=== PATIENT | female | born 1975 | race Caucasian/White ===

== ENCOUNTER 2021-08-29 00:50 | Day surgery (SDC) | payer OTHER, SELFPAY ==
[2021-08-09 13:37] VITALS: BMI 31.8
--- NOTE | 2021-08-09 14:03 | PC.NURSE ---
Report to the Outpatient Waiting Room, entrance under the green pavilion located off [facility], at time _0830_ on date 08/16/21 _. OR Time: __1030-- You and your visitor will be asked a series of questions to screen for COVID 19 for your protection. - A mask is required within the hospital. - Only one visitor is allowed at this time. Patient visitors will be guided where to wait when not with patient. Preoperative COVID Testing Requirements: No COVID Test needed if: (proof is required; if not received patient will have Rapid Test prior to entry) - Patient has received COVID Vaccine at least 14 days prior to procedure date or - Patient has positive COVID test result within last 90 days of surgery date. COVID Test needed if above criteria is not met If not COVID vaccinated a COVID test must be conducted within 72 hours of surgery and patient is asked to isolate self from time of testing until procedure. You will go to the [facility] for your COVID testing. The [facility] Testing site is located at the corner of [address] [facility]. You will only be called if COVID results are positive and your surgeon may reschedule your elective surgery date. Patients may have clear liquids (water, carbonated beverages, clear teas, apple juice) until 3 hours prior to surgery with a maximum of 20 ounces. - No food from midnight until time of surgery - Infants may have breast milk until 4 hours before surgery, formula 6 hours prior to surgery. - Children will be allowed to drink immediately following surgery. If applicable, please bring a bottle or sippy cup to assist with drinking. Juice, water, soda, and popsicles are readily available. For infants on formula, please bring formula the day of surgery. Pacifiers are allowed. Take the following medications with a SIP of water the morning of surgery: ____LORATIDINE, BUPROPION Medications to discontinue per physician MULTIVITAMIN Date to take last dose 08/12/21 Please no make-up, nail jordanian, hairspray, perfume, deodorant, or body powder the day of surgery. No jewelry (including any body piercings) or valuables the day of surgery, leave them at home. Please take a shower or bath the night before, or the morning of, surgery with an antibacterial soap. Wear comfortable, loose fitting clothing. Children are encouraged to wear pajamas. - Jewelry must be removed prior to entering the operating room. Rings and piercings that are not removed may be cut off. - The hospital will not accept responsibility for valuables. - Please leave all valuables, including medications, at home the day of surgery. If you are going home after surgery, a licensed electric pile driver operator must drive you home. - NO public transportation without another adult. - We recommend that an adult stay with you for 24 hours following discharge. - We also recommend that you do not drive, make important decision, drink alcoholic beverages, or take any drugs that were not prescribed by your health care provider for at least 24 hours after your discharge time. For Pediatric surgeries, we recommend two adults accompany the child home (only one inside the building at this time). Follow any additional instructions given to you from your surgeon. Telephone instructions given to ____JEREMIAH and asked if any additional questions and then verbalized understanding. Patient advised to call surgeon office or pre surgery nurse liaison [phone] if any additional questions.
--- NOTE | 2021-08-22 08:20 | PC.NURSE ---
Report to the Outpatient Waiting Room, entrance under the green pavilion located off [facility], at time _0900_ on date 08/29/21_. OR Time: 1100___. - You and your visitor will be asked a series of questions to screen for COVID 19 for your protection. - A mask is required within the hospital. - Only one visitor is allowed at this time. Patient visitors will be guided where to wait when not with patient. Preoperative COVID Testing Requirements: No COVID Test needed if: (proof is required; if not received patient will have Rapid Test prior to entry) - Patient has received COVID Vaccine at least 14 days prior to procedure date or - Patient has positive COVID test result within last 90 days of surgery date. COVID Test needed if above criteria is not met If not COVID vaccinated a COVID test must be conducted within 72 hours of surgery and patient is asked to isolate self from time of testing until procedure. You will go to the [facility] for your COVID testing. The [facility] Testing site is located at the corner of [address] [facility]. You will only be called if COVID results are positive and your surgeon may reschedule your elective surgery date. Patients may have clear liquids (water, carbonated beverages, clear teas, apple juice) until 3 hours prior to surgery with a maximum of 20 ounces. - No food from midnight until time of surgery - Infants may have breast milk until 4 hours before surgery, infant formula 6 hours prior to surgery. - Children will be allowed to drink immediately following surgery. If applicable, please bring a bottle or sippy cup to assist with drinking. Juice, water, soda, and popsicles are readily available. For infants on formula, please bring formula the day of surgery. Pacifiers are allowed. Take the following medications with a SIP of water the morning of surgery: ____NONE Medications to discontinue per physician MULTIVITAMIN/SUPPLIMENTS Date to take last dose 08/26/21 Please no make-up, nail georgian, hairspray, perfume, deodorant, or body powder the day of surgery. No jewelry (including any body piercings) or valuables the day of surgery, leave them at home. Please take a shower or bath the night before, or the morning of, surgery with an antibacterial soap. Wear comfortable, loose fitting clothing. Children are encouraged to wear pajamas. - Jewelry must be removed prior to entering the operating room. Rings and piercings that are not removed may be cut off. - The hospital will not accept responsibility for valuables. - Please leave all valuables, including medications, at home the day of surgery. If you are going home after surgery, a licensed trailer truck driver must drive you home. - NO public transportation without another adult. - We recommend that an adult stay with you for 24 hours following discharge. - We also recommend that you do not drive, make important decision, drink alcoholic beverages, or take any drugs that were not prescribed by your health care provider for at least 24 hours after your discharge time. For Pediatric surgeries, we recommend two adults accompany the child home (only one inside the building at this time). Follow any additional instructions given to you from your surgeon. Telephone instructions given to PATIENT____and asked if any additional questions and then verbalized understanding. Patient advised to call surgeon office or pre surgery nurse liaison [phone] if any additional questions.
--- NOTE | 2021-08-22 08:25 | PC.NURSE ---
PT DENIES ANY CHANGE IN HEALTH OR MEDICATION. NEW INSTRUCTIONS REVIEWED. DENIES ANY QUESTIONS
--- NOTE | 2021-08-28 15:36 | PM.SD2 ---
Same Day Admit/Disch: HPI History of Present Illness Chief complaint: scalp cyst x 4 Narrative: Enma Rogers is a 46 year old female with several scalp cysts. She had a couple of scalp cysts removed about 15 years ago. These recurred and others have developed. The recurrent ones are larger now within the last year. All of them are bothersome with taking care of her hair. She is taken to surgery now for excision of 4 scalp cyst. 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 Spiritual care concerns: No Same Day Admit/Disch: Med Pre-admit Medications Home Medications Medication Instructions Recorded Confirmed Type bupropion HCl 300 mg 24 hr tablet, 300 mg PO QAM 07/12/21 08/29/21 History extended release cholecalciferol (vitamin D3) 10 10 mcg PO DAILY 07/12/21 08/29/21 History mcg (400 unit) capsule loratadine 10 mg tablet 10 mg PO DAILY 07/12/21 08/29/21 History multivitamin 1 tablet PO DAILY 07/12/21 08/29/21 History hydrocodone-acetaminophen 1 - 2 tablet PO Q6H PRN #12 tablet 08/29/21 Rx ketorolac 10 mg PO Q6H 4 Days #16 tablet 08/29/21 Rx Exam Const: General: comfortable, no acute distress, alert and awake HENMT: Head: normocephalic, atraumatic, scalp lesion ( 2 cm right parietal occipital, 1 cm upper occipital, ) and other ( left frontoparietal cyst 1.3 cm, left frontoparietal, just posterior, 0.3 ) Mouth: Yes Normal oral and palatal mucosa present Eyes: Conjunctivae: conjunctivae normal Pupils: Equal, round and reactive pupils present EOM: EOMs intact bilaterally Neck: Neck: normal visual inspection, no lymphadenopathy and nontender Resp: Effort & Inspection: normal respiratory effort Auscultation: clear to auscultation bilaterally Cardio: Rate: regular rate Rhythm: regular rhythm Heart sounds: no gallops, no murmurs and no rubs GI: Inspection: non-distended GI Palp: Yes Soft to palpation, No Tenderness to palpation present (GI), No Hepatomegaly present and No Splenomegaly present Skin: Lesions: lesion noted ( scalp cysts as noted above) Rashes: no rashes Neuro: General: no focal motor deficits and CN's II-XI intact bilaterally Cranial nerves: Yes Equal, round and reactive pupils present, Yes Bilaterally intact EOM present, Yes facial symmetry and Yes Midline tongue present Speech: normal speech Motor exam (neuro): 5/5 motor strength present throughout and Motor abnormalities not present Extrem: General: no clubbing, cyanosis or edema and edema Psych: Affect: normal affect Thought process: Normal thought process present Insight: Good insight present (Psych) DS: Summary Time Spent with Patient Time attestation: Total time spent providing and/or coordinating discharge services: DS: Admitting Diagnosis Discharge Date 08/29/2021 Admitting Diagnosis symptomatic scalp cysts x4 -plan to excise under anesthesia as an outpatient. The procedure the risks the benefits have been discussed with the patient. All questions were answered. She agrees to go ahead. Latex allergy DS: Discharge Diagnosis Discharge Diagnosis (1) Scalp cyst: Code(s): L72.9 - Follicular cyst of the skin and subcutaneous tissue, unspecified Status: Chronic Discharge Plan Discharge Patient Disposit
[2021-08-29 09:11] VITALS: BP 117/74; PULSE 65; RESP 16; TEMP 36.7; O2SAT 100
[2021-08-29] MEDS: LACTATED RINGERS 1,000 ML 30 ML IV CONT (09:40)
--- NOTE | 2021-08-29 09:47 | WPDANESEPPF ---
Anes - Initial Pre Proc Eval Procedure: Operation Date: 08/29/21 11:00 Proposed Procedures p Excision Scalp Cyst Times Four - Rey Hu MD Date/Time: 08/29/21 09:47 Surgeon: Rey Hu MD Pre Op Diagnosis: scalp cyst x 4 Patient Data Age: 46 Gender: F Height: 1.73 m Weight: 106.4 kg Last Vital Signs Temp 36.7 C 08/29/21 09:11 Pulse 65 08/29/21 09:11 Resp 16 08/29/21 09:11 BP 117/74 08/29/21 09:11 Pulse Ox 100 08/29/21 09:11 Allergies Allergy/AdvReac Type Severity Reaction Status Date / Time latex Allergy Mild SKIN Verified 08/29/21 09:17 PEELING ON BILAT HANDS/FEET Home Medications Medication Instructions Recorded Confirmed Type bupropion HCl 300 mg 24 hr tablet, 300 mg PO QAM 07/12/21 08/29/21 History extended release cholecalciferol (vitamin D3) 10 10 mcg PO DAILY 07/12/21 08/29/21 History mcg (400 unit) capsule loratadine 10 mg tablet 10 mg PO DAILY 07/12/21 08/29/21 History multivitamin 1 tablet PO DAILY 07/12/21 08/29/21 History Patient hx anesthesia problems: none Family hx anesthesia problems: none Results Review: All pre-operative results and documents have been reviewed as part of the pre-operative evaluation. 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 Informed Consent: The patient's anesthetic plan and its attendant risks and benefits were discussed with the patient/family/POA. Questions were solicited and answers provided to the satisfaction of the patient/family/POA.
--- NOTE | 2021-08-29 09:57 | WPDHPUPDATE1 ---
History and Physical Update Update Date/Time: 08/29/21 09:57 History and Physical has been reviewed, including an updated exam of the patient. There are NO changes in the patient's condition. Risks, benefits, and alternatives have been discussed and questions answered. Patient agrees to proceed with procedure.
[2021-08-29] MEDS: BUPIVACAINE/EPINEPHRINE 0.5% 10 ML VIAL 20 ML INFILTRATE (10:23)
[2021-08-29] MEDS: BACITRACIN OINTMENT 15 GM TUBE 1 APPLIC TOPICAL (11:09)
[2021-08-29 11:56] VITALS: BP 114/64; PULSE 69; RESP 12; O2SAT 97
--- NOTE | 2021-08-29 12:21 | W.PM.PROC2 ---
Procedure Note - Detailed Date of Procedure 08/29/21 Pre-op Diagnosis scalp cyst x 4 Post-op Diagnosis same Procedure Performed Excision of multiple skin cysts of the scalp Surgeon Rey Hu MD Warp Tying Machine Knotter Shama JIANG Anesthesia general (LMA, propofol) and local (0.5% Marcaine with epinephrine) Indications Patient has recurrent scalp cyst in the right parietal area as well as new scalp cysts. They are all symptomatic and she is taken to surgery now for removal. Findings Left parietal cyst-0.8 cm cyst, 2 cm excision, no margin Left frontal cyst-1.5 cm cyst, 4.5 cm excision, no margin Right parietal cysts x2 (recurrent and very close to each other; one excision of both)--1.5 cm cyst, 1.2 cm cyst, 5 cm excision, no margin Occipital cyst-0.7 cm cyst, 2.5 cm excision, no margin Description of Procedure The patient was seen in the preoperative holding area and all of the cysts were marked on the scalp. She was then taken to the operating room and induced into anesthesia per LMA. The rubber bands were used to gather her hair and exposed the previously marked cysts. She was in a supine position but with access even to the occipital cyst. All of the areas of excision were prepped with Betadine. Sterile draping was carried out as well. We started with the left parietal and left frontal cysts. These were close to 1 another. The frontal cyst was larger and the excision was a transversely oriented ellipse. The parietal cyst was more of a craniocaudad orientation. Local was infiltrated in the area of each cyst. The size of each cyst and the size of the excision is as marked above. The left parietal cyst was excised 1st. It was sent to pathology labeled appropriately. All cysts were excised with an ellipse that included the overlying skin. Each cyst was measured after excision. The resultant wound was measured after excision as well. Cautery was used for hemostasis. I then excised the left frontal cyst in transverse orientation as planned. Again cautery was used for hemostasis. Both wounds were closed with vertical mattress interrupted suture of 3-0 nylon. Both wounds came together quite well and hemostasis was good. We then turned our attention to the to right parietal cysts. These were recurrent cyst. They were literally 1 slightly more anterior to the other but very close together. The planned ellipse was oriented anterior posterior and included both cysts. Local was again infiltrated. An ellipse was created that included both cysts. Careful dissection removed the ellipse with the underlying cysts without rupturing any of the cyst. I then checked and measured each of the cysts. I measured the size of the ellipse. Findings are as listed above. Cautery was used for hemostasis and then this wound was closed in similar fashion with 3-0 nylon vertical mattress interrupted suture. We then increased the reverse Trendelenburg and exposed the occipital cyst which was more on the patient's right side. Cyst size as listed above. Local was infiltrated. An ellipse around the cyst was created and the cyst was carefully excised with the overlying skin and surrounding subcutaneous. Size of the cyst and ellipse as marked above. This wound was also closed with vertical mattress sutures of interrupted 3-0 nylon. The gathered hair was freed of the rubber bands. The scalp was washed to remove any dried of or clotted blood. All wounds were dressed with antibiotic ointment. Patient was awakened and taken to outpatient surgery in good condition. Counts were correct x2. Estimated Blood Loss -10.0 Drains No Packing No Pathology yes (Five cysts as noted above with 4 separate excisions.) Complications No immediate complications Condition stable Disposition same day
[2021-08-29 12:25] VITALS: BP 140/77; PULSE 65; RESP 16
== END 2021-08-29 12:55 | disposition home or self-care (01) ==
PROVIDERS: PCP Internal Medicine; Visit Provider Surgery
PROC: (CPT 11422; principal; 2021-08-29 11:00)
DX: L72.11 Pilar cyst (principal); F41.9 Anxiety disorder, unspecified; E66.9 Obesity, unspecified; Z68.35 Body mass index [BMI] 35.0-35.9, adult
CPT/HCPCS: 11422; 11426 ×2; 11423; 88304; 88305; A9270; J2250; J2704; J3010; J7120

== ENCOUNTER 2022-07-18 11:14 | Emergency (ER) | payer OTHER, SELFPAY ==
[2022-07-18 11:24] VITALS: BP 136/90; PULSE 74; RESP 20; TEMP 36.2; O2SAT 100
--- NOTE | 2022-07-18 14:58 | ED.BACK ---
HPI - Back Pain/Injury General Chief Complaint: Back Pain/Injury Stated Complaint: back pain Time Seen by Provider: 07/18/22 14:49 Source: RN notes reviewed History of Present Illness HPI Narrative: Patient presents emergency room from home for left lower back pain. Patient states that this morning at approximately 6:30 AM she was bending over to get something out of the freezer when she felt a sharp pain in her left lower back she states since that time she has had pain in her left lower back that is worse with movement. She denies falling or directly striking her back she denies any radiation of the pain into her legs she denies any abdominal pain fever chills numbness or tingling in extremities bowel or bladder incontinence or any other symptoms. States she does have a history of a slipped disc before in the past states she has not taken anything for the pain Related Data Home Medications Medication Instructions Recorded Confirmed cholecalciferol (vitamin D3) 10 10 mcg PO DAILY 07/12/21 09/13/21 mcg (400 unit) capsule loratadine 10 mg tablet (Claritin) 10 mg PO DAILY 07/12/21 09/13/21 multivitamin 1 tablet PO DAILY 07/12/21 09/13/21 Allergies Allergy/AdvReac Type Severity Reaction Status Date / Time latex Allergy Mild SKIN Verified 09/13/21 09:35 PEELING ON BILAT HANDS/FEET Review of Systems Review of Systems: Gen.: Denies fevers or chills ENT: Denies congestion Respiratory: Denies shortness of breath or cough CV: Denies chest pain GI: Denies abdominal pain nausea, emesis or diarrhea denies incontinence Musculoskeletal see HPI Neuro: Denies numbness, tingling, weakness or focal weakness Skin: Denies rash Except as documented, all other systems reviewed and negative [facility] Past Medical History Medical History Anxiety Asthma Bronchitis Surgical History Surgical History History of right knee surgery Hx of excision of mass scalp masses 08/29/21 [place] teeth extracted Family History Family History Father Malignant neoplasm of prostate Social History Social History (Reviewed 07/18/22 @ 14:59 by EV Andre Smoking status: Never smoker Alcohol intake: current Alcohol use details: Rarely Substance use: never Substance use type: does not use 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 Clear to auscultation bilaterally. Abdomen: Soft and nontender, no rebound or guarding MUSCULOSKELETAl: Moves all extremities, no clubbing cyanosis or edema Back: No midline lumbar tenderness to palpation or step-off, tender to palpation over left paravertebral muscles L2-4 , pain increased with forward flexion NEURO: Awake and alert. Following commands, speech normal, no focal deficits, muscle strength 5 out of 5 bilateral lower extremities, bilateral patellar reflex 2+ SKIN:: Warm, dry. Normal Color no rash or lesions Course Course Emergency Course: Discussed with patient results of workup and diagnosis. Discussed need for follow-up with primary care, proper use of medication, and reasons to return to the emergency department. Patient understands and agrees to current treatment plan Vital Signs Vital signs: Vital Signs Temperature 97.1 F L 07/18/22 11:24 Pulse Rate 74 07/18/22 11:24 Respiratory Rate 20 07/18/22 11:24 Blood Pressure 136/90 07/18/22 11:24 Pulse Oximetry 100 07/18/22 11:24 Oxygen Delivery Room Air 07/18/22 11:24 Temperature 97.1 F L 07/18/22 11:24 Pulse Rate 74 07/18/22 11:24 Respiratory Rate 20 1
[2022-07-18] MEDS: IBUPROFEN 600 MG TABLET PO (15:34)
[2022-07-18] MEDS: CYCLOBENZAPRINE HCL 10 MG TABLET PO (15:34)
[2022-07-18] MEDS: predniSONE 20 MG TABLET 60 MG PO (15:34)
== END 2022-07-18 16:23 | disposition home or self-care (01) ==
PROVIDERS: Emergency Provider Emergency Medicine; PCP Internal Medicine
DX: M54.50 Low back pain, unspecified (principal); F41.9 Anxiety disorder, unspecified; J45.909 Unspecified asthma, uncomplicated
CPT/HCPCS: 99283; A9270; J7512